=== PATIENT | male | born 1935 | race Caucasian/White ===

== ENCOUNTER → 2019-10-27 10:25 | Outpatient (CLI) | payer MEDICARE, SELFPAY ==
--- NOTE | 2019-10-27 10:35 | RAD_ITS ---
STUDY: X-RAY CHEST REASON FOR EXAM: Male, 84 years old. SOB TECHNIQUE: Bilateral decubitus views COMPARISON: Prior study of earlier this date FINDINGS: The lungs are clear and expanded. There is no evidence of free flowing left or right-sided pleural fluid. There is mild cardiac enlargement. Normal mediastinum and verónica. Normal visualized pulmonary arteries. There are calcified plaques of the aortic arch. There are diffuse degenerative changes of the visualized thoracic spine. Normal visualized ribs, clavicles, and shoulders. There is no demonstrated abnormality of the visualized soft tissue structures of the upper abdomen. RAD/Special CXR (Obl/Decub/A/L) IMPRESSION: No evidence of free flowing pleural effusion bilaterally. Electronically Signed: Elio Cotto MD at 23:22 EDT , Service support ,
--- NOTE | 2019-10-27 10:35 | RAD_ITS ---
STUDY: X-RAY CHEST REASON FOR EXAM: Male, 84 years old. SOB TECHNIQUE: PA and lateral views of the chest. COMPARISON: Prior study of 05/27/2016 FINDINGS: There is a unipolar left-sided pacemaker. The lungs are clear and expanded. 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 There is no pleural effusion. Normal size heart. Normal mediastinum and verónica. Normal visualized pulmonary arteries. There are calcified plaques of the aortic arch. There are diffuse degenerative changes of the visualized thoracic spine. Normal visualized ribs, clavicles, and shoulders. There is no demonstrated abnormality of the visualized soft tissue structures of the upper abdomen. RAD/Chest PA and Lateral IMPRESSION: Calcified plaques of the aortic arch. Degenerative changes of the thoracic spine. No acute cardiopulmonary disease process is seen. Chest findings are stable in the interval. Electronically Signed: Elio Cotto MD at 23:17 EDT , Service support ,
== END ==
PROVIDERS: Referring Provider Internal Medicine Pulmonary Disease; Visit Provider Internal Medicine Pulmonary Disease
DX: J45.30 Mild persistent asthma, uncomplicated (principal)
CPT/HCPCS: 71046

== ENCOUNTER → 2020-02-03 08:26 | Outpatient (CLI) | payer MEDICARE, SELFPAY ==
--- NOTE | 2020-02-03 08:31 | RAD_ITS ---
STUDY: X-RAY CHEST REASON FOR EXAM: Male, 84 years old. POST BYPASS X 1 MONTH. PT SOB TECHNIQUE: PA and lateral views of the chest. COMPARISON: Comparison is made with prior study 10/27/2019. FINDINGS: Hyperinflation. Azygos lobe. There is no demonstrated pleural abnormality. Sternal cerclage wires and vascular clips are present from a prior sternotomy and coronary artery bypass graft procedure (CABG). A left-sided unipolar pacemaker is seen. Normal mediastinum and verónica. Normal visualized pulmonary arteries. There is atherosclerotic calcification of the aortic arch with tortuosity. There are diffuse degenerative changes of the visualized thoracic spine. Normal visualized ribs, clavicles, and shoulders. There is no demonstrated abnormality of the visualized soft tissue structures of the upper abdomen. RAD/Chest PA and Lateral IMPRESSION: No acute abnormality is seen. Hyperinflation. Electronically Signed: Marvin Francisco, at 8:56 EST , Service support ,
== END ==
PROVIDERS: Referring Provider Internal Medicine Pulmonary Disease; Visit Provider Internal Medicine Pulmonary Disease
DX: R06.00 Dyspnea, unspecified (principal)
CPT/HCPCS: 71046

== ENCOUNTER → 2020-03-13 08:24 | Outpatient (CLI) | payer MEDICARE, SELFPAY ==
--- NOTE | 2020-03-13 08:30 | RAD_ITS ---
PROCEDURE: Sniff test. DATE OF EXAMINATION: 03/13/2020 INDICATION: Male, 84 years old. Increasing shortness of breath. FLUOROSCOPY TIME (if supplied): (19 seconds) minutes/seconds. One single view was obtained. There is normal movement of both right and left hemidiaphragms. RAD/Fluoroscopy 1 Hr or Less IMPRESSION: Normal movement of both the right and left hemidiaphragms. Electronically Signed: Marvin Francisco, at 9:15 EST , Service support ,
== END ==
PROVIDERS: Referring Provider Internal Medicine Pulmonary Disease; Visit Provider Internal Medicine Pulmonary Disease
DX: R06.00 Dyspnea, unspecified (principal)
CPT/HCPCS: 76000

== ENCOUNTER → 2020-03-21 08:42 | Outpatient (CLI) | payer MEDICARE, SELFPAY | PROVIDERS: Referring Provider Internal Medicine Pulmonary Disease; Visit Provider Internal Medicine Pulmonary Disease | DX: R06.00 Dyspnea, unspecified (principal) | CPT/HCPCS: 36415; 83880 ==

== ENCOUNTER 2021-06-12 14:07 | Outpatient (CLI) | payer MEDICARE, SELFPAY ==
--- NOTE | 2021-06-12 10:28 | RAD_ITS ---
STUDY: X-RAY CHEST REASON FOR EXAM: Male, 85 years old. ATELECTASIS TECHNIQUE: PA and lateral views of the chest. COMPARISON: Comparison is made with prior study dated 11/04/2019. FINDINGS: Mild increased linear markings at the lung bases slightly more prominent on the left side suggestive of scarring. Azygos lobe. There is no demonstrated pleural abnormality. Sternal cerclage wires and vascular clips are present from a prior sternotomy and coronary artery bypass graft procedure (CABG). Borderline cardiomegaly. A left-sided unipolar pacemaker is seen. Normal mediastinum and verónica. Normal visualized pulmonary arteries. There is atherosclerotic calcification of the aortic arch with tortuosity. There are diffuse degenerative changes of the visualized thoracic spine. Normal visualized ribs, clavicles, and shoulders. There is no demonstrated abnormality of the visualized soft tissue structures of the upper abdomen. RAD/Chest PA and Lateral IMPRESSION: Stable mild increased markings at the lung bases suggestive of scarring. Electronically Signed: Marvin Francisco MD at 15:49 EDT ,
== END 2021-06-12 23:59 | disposition home or self-care (01) ==
PROVIDERS: Referring Provider Internal Medicine Pulmonary Disease; Visit Provider Internal Medicine Pulmonary Disease
DX: J98.11 Atelectasis (principal)
CPT/HCPCS: 71046

== ENCOUNTER → 2024-03-11 | Outpatient (CLI) | payer MEDICARE, SELFPAY ==
--- NOTE | 2024-03-11 13:59 | ECHOD_ITS ---
Reason For Study: MITRAL REGURGITATION Procedure This was a 2D Doppler, Color Flow transthoracic echocardiogram. The study was technically difficult. Exam performed in department. Left Ventricle Mild concentric left ventricular hypertrophy. Normal LV size. The left ventricular ejection fraction is 55 %. Stage 1 diastolic dysfunction. Right Ventricle The right ventricle is not well visualized. Normal RV size. Atria There is severe biatrial dilatation. Mitral Valve Mild (1+) mitral valve insufficiency. Tricuspid Valve Moderate (2+) tricuspid valve insufficiency. Right ventricular systolic pressure estimated to be 57 mmHg. Aortic Valve Trisinus/trileaflet aortic valve. Pulmonic Valve The pulmonic valve is not well visualized. Great Vessels Mildly dilated aortic root. Pericardium/Pleural No pericardial effusion. MMode/2D Measurements & Calculations LVIDd: 5.2 cm IVSd: 1.3 cm LVOT diam: 2.0 cm LVIDs: 3.6 cm LVPWd: 1.1 cm LVOT area: 3.0 cm2 FS: 30.3 % LA dimension: 4.8 cm asc Aorta Diam: 3.8 cm LAV(MOD-bp): 72.1 ml LAV(MOD-bp) Indexed: 32.0 ml/m2 LAV(MOD-sp2): 67.3 ml LAV(MOD-sp4): 78.0 ml SV(MOD-sp4): 36.7 ml LVAd ap4: 22.6 cm2 LVAd ap2: 24.0 cm2 LVLd ap4: 7.1 cm LVLd ap2: 7.2 cm SI(MOD-sp4): 16.3 ml/m2 EDV(MOD-sp4): 58.8 ml EDV(MOD-sp2): 64.1 ml EDV(sp4-el): 60.6 ml EDV(sp2-el): 67.9 ml LVAs ap4: 12.3 cm2 LVAs ap2: 13.8 cm2 LVLs ap4: 5.9 cm LVLs ap2: 6.2 cm ESV(MOD-sp4): 22.1 ml ESV(MOD-sp2): 25.3 ml ESV(sp4-el): 21.6 ml ESV(sp2-el): 26.2 ml EF(MOD-sp4): 62.5 % EF(MOD-sp2): 60.6 % EF(sp4-el): 64.4 % SV(MOD-sp2): 38.8 ml SV(sp4-el): 39.0 ml Ao sinus diam: 3.9 cm SI(MOD-sp2): 17.3 ml/m2 Ao ST Junction: 2.9 cm LA dimension(2D): 4.6 cm LA A4 area: 24.3 cm2 TAPSE: 0.95 cm RA A4 area: 21.5 cm2 Time Measurements MV dec time: 0.17 sec Doppler Measurements & Calculations MV E max ehsan: 133.7 cm/sec Lat Peak E' Ehsan: 6.3 cm/sec Med Peak E' Ehsan: 6.8 cm/sec MV A max ehsan: 32.6 cm/sec E/E' lat: 21.2 E/E' med: 19.7 MV E/A: 4.1 MV dec slope: 779.4 cm/sec2 Ao V2 max: 103.5 cm/sec LV V1 max: 82.5 cm/sec Ao max P.3 mmHg LV V1 max P.7 mmHg Ao V2 mean: 77.7 cm/sec LV V1 mean P.6 mmHg Ao mean P.6 mmHg LV V1 mean: 60.3 cm/sec Ao V2 VTI: 19.1 cm LV V1 VTI: 16.2 cm AV (velocity ratio): 0.85 LALI(I,D): 2.6 cm2 LALI(V,D): 2.4 cm2 SV(LVOT): 49.2 ml PA V2 max: 87.6 cm/sec TR max ehsan: 325.9 cm/sec TR max P.5 mmHg ECHO/Echo Complete Interpretation Summary The left ventricular ejection fraction is 55 %. Stage 1 diastolic dysfunction. Mild (1+) mitral valve insufficiency. Moderate (2+) tricuspid valve insufficiency. Right ventricular systolic pressure estimated to be 57 mmHg. Mildly dilated aortic root. The study was technically difficult. Ordering Physician: Kimani Levine Referring Physician: Kimani Levine MD Performed By: Jyoti Trujillo RDCS
== END | disposition home or self-care (01) ==
LOC: CVS 13:58
PROVIDERS: PCP Internal Medicine; Referring Provider Internal Medicine Cardiovascular Disease; Visit Provider Internal Medicine Cardiovascular Disease
DX: I34.0 Nonrheumatic mitral (valve) insufficiency (principal)
CPT/HCPCS: 93306

== ENCOUNTER → 2024-11-01 | Outpatient (CLI) | payer MEDICARE, SELFPAY ==
[2024-11-01 12:45] LABS: Hematocrit 40.3 % (40-54); Hemoglobin 13.0 g/dL (13.0-16.5); Immature Granulocytes Count 0.020 X10^3/uL (0.0-0.0); Mean Corp Hgb Conc 32.3 g/dL (32-36); Mean Corpuscular Volume 96.0 fL (80-94); Mean Platelet Vol. 11.2 fl (6.2-12.0); NRBC Flagged by Analyzer 0 % (0-5); Platelet Count 227 K/mm3 (150-450); RBC Distribution Width CV 13.6 % (11.6-14.6); RBC Distribution Width SD 48.0 fl (35.1-43.9); Red Blood Count 4.20 M/mm3 (4.6-6.2); White Blood Count 6.5 K/mm3 (4.4-11.0)
[2024-11-01 13:25] LABS: AST(SGOT) 20 U/L (<=37); Alanine Aminotransfer ALT/SGPT 10 U/L (<=46); Albumin, Serum 3.9 g/dL (3.4-4.8); Alkaline Phosphatase 79 U/L (40-129); Anion Gap 10 (5-15); BUN 24 mg/dL (4-19); BUN/Creat Ratio 12.4 RATIO (10-20); Calcium,Total 9.7 mg/dL (7.6-11.0); Carbon Dioxide 26.7 mmol/L (21.0-32.0); Chloride 104 mmol/L (98-108); Cholesterol 139 mg/dL (<=200); Globulin 2.9 g/dL (2.2-4.2); Glucose 113 mg/dL (70-99); Low Density Lipoprotein Calc. 73 mg/dL; Potassium 4.5 mmol/L (3.3-5.1); Triglycerides 86 mg/dL; Very Low Density Lipoprotein 17 mg/dL (5-40); cholesterol:hdl ratio screen 2.83
[2024-11-01 13:31] LABS: PSA,Total- Diagnostic < 0.02 ng/mL (0.00-4.00); Vitamin D,25 Hydroxy 59.9 ng/mL (30-100)
== END | disposition home or self-care (01) ==
LOC: BIMLAB 09:11
PROVIDERS: PCP Internal Medicine; Referring Provider Internal Medicine; Visit Provider Internal Medicine
DX: E03.9 Hypothyroidism, unspecified (principal); I25.10 Atherosclerotic heart disease of native coronary artery without angina pectoris; Z85.46 Personal history of malignant neoplasm of prostate; E55.9 Vitamin D deficiency, unspecified
CPT/HCPCS: 36415; 80053; 80061; 82306; 84153; 84443; 85025

== ENCOUNTER → 2025-01-10 | Outpatient (CLI) | payer MEDICARE, SELFPAY ==
--- NOTE | 2025-01-10 10:12 | ST.MBS ---
Modified Barium Swallow Patient Information Study Date: 01/10/25 Study Time: 13:00 Direct Billable Minutes: 83 Total Minutes procedure & reportin Diagnosis: Dysphagia R13.10 Referring Physician: Aiden Payne V Reason for Referral: Assess swallow function, assess risk for aspiration, and determine recommendations for any necessary dysphagia interventions. Medical History: The patient presents for MBSS w/ referral from dermatology nurse practitioner due to pt reporting coughing and throat clearing w/ liquids. He denied difficulty swallowing foods, hx of choking, or sensation of retention. He reports having swallowing difficulty daily. This issue has gone on for the past 12-15 years. He denied hx of PNA. Medical History Tobacco use Peripheral neuropathy Osteoarthritis Obesity Generalized muscle weakness Dysphagia Cough Chronic diastolic heart failure BPH with obstruction/lower urinary tract symptoms Atrial fibrillation Anemia Skin cancer Hypothyroid Pacemaker RLS (restless legs syndrome) Prostate cancer Hyperlipemia Hypertension Heart disease Cataracts, bilateral Surgical History H/O hernia repair Cataract extraction status S/P prostatectomy H/O heart bypass surgery Current Diet Ordered: Regular textures / Thin liquids Dentition: Upper Dentures Mental Status: WNL Respiratory Status: Oxygenating on Room Air Penetration-Aspiration Scale Penetration-Aspiration Scale: OBJECTIVE ASSESSMENT OF SWALLOW FUNCTION (QUANTITATIVE ? PER TRIAL): PENETRATION / ASPIRATION SCALE (KELLER): 1 = does not enter airway 2 = enters airway/above vocal folds/ejected 3 = enters airway/above vocal folds/not ejected 4 = enters airway/contacts vocal folds/ejected 5 = enters airway/contacts vocal folds/not ejected 6 = enters airway/below vocal folds/ejected 7 = enters airway/below vocal folds/not ejected despite effort 8 = enters airway/below vocal folds/no effort VIDEOFLOROSCOPIC SCALE SCORE (KELLER): Grade I = aspiration of material that has penetrated into the laryngeal vestibule, intact cough reflex Grade II = aspiration < 10 % of the bolus, intact cough reflex Grade III = aspiration of < 10 % of the bolus, reduced cough reflex or aspiration of > 10 % of the bolus, intact cough reflex Grade IV = aspiration of > 10 % of the bolus, reduced cough reflex Penetration-Aspiration Scale Score Thin Liquid via teaspoon: Result: 2= enter airway/above vocal folds/ejected Thin Liquid via large single sip: cup: Result: 7= enters airways/below vocal folds/not ejected despite effort Comment: Delayed reflexive cough Thin Liquid via small single sip: cup: Result: 5= enters airways/contacts vocal folds/not ejected Comment: Cued cough = somewhat effective Thin Liquid via small single sip: cup Effortful swallow: Result: 3= enters airways/above vocal folds/not ejected [place] Thick Liquid via small single sip: cup: Result: 1= does not enter airway Pudding via teaspoon: Result: 1= does not enter airway Comment: Esophageal screen - Complete clearance. / Cookie: Result: 1= does not enter airway Thin Liquid via single sip: straw Effortful swallow: Result: 5= enters airways/contacts vocal folds/not ejected Thin Liquid via small single sip: cup Effortful swallow Trial 2: Result: 5= enters airways/contacts vocal folds/not ejected Comment: Cued cough = somewhat effective Thin Liquid via small single sip: cup Chin tuck: Result: 1= does not enter airway Thin Liquid via small single sip: cup Chin tuck Trial 2: Result: 1= does not enter airway [place] Thick Liquid via small single sip: cup Trial 2: Result: 1= does not enter airway Oral Phase Labial Seal: Interlabial escape, no progression to anterior lip Tongue Control During Bolus Hold: Posterior escape of greater than half of bolus Bolus Preparation/Mastication: Disorganized chewing/mashing with solid pieces of bolus unchewed Bolus Transport/Lingual Motion: Delayed initiation of tongue motion Oral Residue: Trace residue lining oral structures Pharyngeal Phase Initiation of Pharyngeal Swallow: Bolus head in pyriforms Soft Palate Elevation: Trace column of contrast/air between soft palate and pharyngeal wall Laryngeal Elevation: Partial superior movement thyroid cart/partial apprx aryt-epig petiole Anterior Hyoid Excursion: Partial anterior movement Epiglottic Movement: Complete inversion Laryngeal Vestibule Closure at Height of Swallow: Incomplete; narrow column of air/contrast in laryngeal vestibule Pharyngeal Stripping Wave: Present - diminished Pharyngoesophageal Segment Opening: Parital distension and partial duration; parital obstruction of flow Tongue Base Retraction: Wide column of contrast between tongue base & post. pharyngeal wall Pharyngeal Residue: Collection of residue within or on pharyngeal structures Esophageal Phase Esophageal Clearance: Esophageal retention (trace retention in the UES/upper esophagus) Diagnosis/Impression Diagnosis: Mild-moderate oropharyngeal dysphagia R13.12 MBS Impressions: The oral phase is primarily marked by... -Delayed tongue motion for A-P transport. -Premature posterior loss of >1/2 of thin liquids to the pharynx prior to swallow onset. -Decreased mastication w/ small pieces of cookie not fully chewed. The pharyngeal phase is primarily marked by... -Mildly delayed swallow onset. -Decreased pharyngeal motility due to decreased TB retraction and pharyngeal stripping wave most noticeable w/ mildly thick liquid trials resulting in mild-moderate pharyngeal residues. -Decreased airway closure during the swallow due to decreased anterior hyoid excursion and laryngeal elevation w/ aspiration of thin liquids w/ delayed, weak cough reflex. Recommendations Diet: Easy to Chew Textures and Thin Liquids Comment: Frequent oral care Medications whole in puree Compensatory Strategies: Small Bites, Small Sips, Slow Rate, Chin Tuck (All Sips), Sitting upright and Remain sitting upright for 30 minutes after PO intake Recommend Repeat Modified Barium Swallow: TBD Need for Skilled Speech Therapy Services: Yes Comment: -Train the patient in use of strategies to decrease risk for aspiration. -Ongoing assessment of diet tolerance of recommended textures. If poor diet tolerance or worsening respiratory status, consider downgrade to mildly thick liquids and repeat MBSS. -Train the patient in a thorough oral care routine. -Train the patient in oropharyngeal exercise program to improve bolus control, airway closure, pharyngeal motility, and cough strength (lingual resistance, Magdaleno, effortful, Vicki, EMST). Education Completed: 1. Described result of evaluation. Status Active ST Patient: Active Contact Information [facility] Speech Therapy:: Flaquita Le M.A. [facility] Speech-Language Pathologist [facility] [address] [place] [address] [email or web address] [phone]
== END | disposition home or self-care (01) ==
PROVIDERS: PCP Internal Medicine; Referring Provider Internal Medicine Pulmonary Disease; Visit Provider Internal Medicine Pulmonary Disease
DX: R13.10 Dysphagia, unspecified (principal)
CPT/HCPCS: 74230; 92611